=== PATIENT | female | born 1970 | race Caucasian/White ===

== ENCOUNTER 2018-01-22 22:23 | Inpatient (IN) | END 2018-01-30 18:30 | disposition home or self-care (01) | DRG 443 ==

== ENCOUNTER 2019-02-27 11:02 | Day surgery (SDC) | payer MEDICAID, OTHER ==
[~2019-02-27] VITALS: Ht 160 cm; Wt 97.0 kg
[~2019-02-27 11:02] MED LIST: ASA 81; METROPOLOL; NITROGLYCERIN
[2019-02-27 12:16] VITALS: Ht 160 cm; Wt 97.0 kg
[2019-02-27 14:36] VITALS: BP 154/90; PULSE 72; RESP 16
--- NOTE | 2019-02-27 16:16 | PREAC ---
Date/Time of Note Date/Time of Note DATE: 02/27/19 TIME: 16:14 Anesthesia Eval and Record Evaluation Time Pre-Procedure Interview DATE: 02/27/19 TIME: 16:14 Age 48 Sex female NPO: 8 hrs Preoperative diagnosis Abdominal pain Planned procedure EGD Past Medical History Past Medical History: Includes Cardio: HTN GI: Morbid obesity Surgery & Anesthesia Issues No known issue Meds Anticoagulation: Yes Beta Deng within 24 hr: Yes Reported Medications [Asa 81] No Conflict Check 02/27/19 [Nitroglycerin] No Conflict Check 02/27/19 [Metropolol] No Conflict Check 02/27/19 Meds reviewed: Yes Allergies Coded Allergies: No Known Allergy (Unverified , 02/27/19) Allergies Reviewed: Yes Labs/Studies Labs Reviewed: Reviewed by anesthesiologist test: Negative Studies: ECG Pre-procedure Exam Last vitals Vital Signs Date Temp Pulse Resp B/P (MAP) Pulse Ox O2 O2 Flow FiO2 Time Delivery Rate 02/27/19 97.1 72 16 154/90 100 Room Air 14:36 (111) Airway: Adequate mouth opening, Adequate thyromental dist Mallampati: Mallampati II Teeth: Normal Lung: Normal Heart: Normal ASA Physical Status ASA physical status: 3 Emergency: None Planned Anesthetic General/MAC: MAC Planned Pain Management Parenteral pain med Pre-operative Attestations Prior to commencing anesthesia and surgery, the patient was re-evaluated, there was verification of: *The patient's identity *The results of appropriate recent lab work and preoperative vital signs *The above evaluation not changing prior to induction *Anesthetic plan, risk benefits, alternative and complications discussed with patient/family; questions answered; patient/family understands, accepts and wishes to proceed. KVNG HELTON MD Feb 27, 2019 16:16
[2019-02-27] MEDS ORDERED: LIDOCAINE 2% (SDV) 5 ML INJ ONE (16:22)
[2019-02-27] MEDS ORDERED: PROPOFOL 40 ML ONE (16:22)
--- NOTE | 2019-02-27 16:42 | PAC ---
Date/Time of Note Date/Time of Note DATE: 02/27/19 TIME: 16:41 Post-Anesthesia Notes Post-Anesthesia Note Last documented vital signs Vital Signs Date Temp Pulse Resp B/P (MAP) Pulse Ox O2 O2 Flow FiO2 Time Delivery Rate 02/27/19 97.1 72 16 154/90 100 Room Air 14:36 (111) Activity: WNL Respiratory function: WNL Cardiovascular function: WNL Mental status: Baseline Pain reasonably controlled: Yes Hydration appropriate: Yes Nausea/Vomiting absent: Yes Comments BP:112/56, P:78, Spo2;100%, T:98,8 KVNG HELTON MD Feb 27, 2019 16:42
[2019-02-27 17:07] VITALS: BP 158/95; RESP 18
== END 2019-02-27 17:59 | disposition home or self-care (01) ==
LOC: GIL 11:02
PROVIDERS: ATTEND Internal Medicine Gastroenterology
DX: K29.50 Unspecified chronic gastritis without bleeding (principal); I10 Essential (primary) hypertension
CPT/HCPCS: 43239; 84703; 88305; 88312; Z7610

== ENCOUNTER 2019-03-22 07:17 | Day surgery (SDC) | payer OTHER ==
[2019-03-21 15:41] VITALS: BMI 37.8
[~2019-03-22] VITALS: Ht 165.1 cm; Wt 97.9 kg
[2019-03-22] VITALS (21 sets, daily range): BP systolic 134–166; BP diastolic 80–103; PULSE 60–75; RESP 14–23; Ht 165.1 cm; Wt 97.9 kg
[~2019-03-22 07:17] MED LIST changes: +ASPI81TA52 PO; +METO-448 PO; +OMEP40CA6 PO
[2019-03-22] MEDS ORDERED: DIPHENHYDRAMINE 50 MG CAP PO ONE (08:00)
[2019-03-22] MEDS ORDERED: SOD CHLORIDE 0.45% 1,000 ML IV SCH (08:00)
[2019-03-22] MEDS ORDERED: DIAZEPAM 5 MG TAB PO ONE (08:00)
[2019-03-22] MEDS ORDERED: FAMOTIDINE 20 MG TAB PO ONE (08:00)
[2019-03-22] MEDS ORDERED: HEPARIN 1000 UNITS/ML 10 ML INJ ONE (09:26)
[2019-03-22] MEDS ORDERED: VERAPAMIL 5 MG INJ ONE (09:26)
[2019-03-22] MEDS ORDERED: FENTAnyl 50 MCG/ML VIAL ONE (09:26)
[2019-03-22] MEDS ORDERED: LIDOCAINE 1% (MDV) 20 ML INJ ONE (09:26)
[2019-03-22] MEDS ORDERED: IODIXANOL LOCM 100 ML BTL ONE (09:26)
[2019-03-22] MEDS ORDERED: NITROGLYCERIN (IC) 100 MCG/ML INJ ONE (09:26)
[2019-03-22] MEDS ORDERED: MIDAZOLAM 1 MG/ML 2 ML INJ ONE (09:26)
[2019-03-22] MEDS ORDERED: SOD CHLORIDE 0.9% 1,000 ML IV SCH (10:32)
[2019-03-22] MEDS ORDERED: ACETAMINOPHEN 325 MG TAB PO PRN (11:00)
[2019-03-22] MEDS ORDERED: AL HYDROX/MG HYDROX/SIMETH 30 ML CUP PO PRN (11:00)
[2019-03-22] MEDS ORDERED: ONDANSETRON 4 MG INJ IV PRN (11:00)
[2019-03-22] MEDS ORDERED: morphine 2 MG INJ IV PRN (11:00)
== END 2019-03-22 16:45 | disposition home or self-care (01) ==
LOC: SDS 07:17
PROVIDERS: ATTEND Internal Medicine
DX: I25.10 Atherosclerotic heart disease of native coronary artery without angina pectoris (principal); I10 Essential (primary) hypertension; K21.9 Gastro-esophageal reflux disease without esophagitis
CPT/HCPCS: 71045; 80048; 80061; 84703; 85025; 85610; 85730; 93005; 93458; C1769; C1887; J1644; J2250; J3010; Q9967